=== PATIENT | male | born 1975 | race African-American/Black ===

== ENCOUNTER 2021-04-28 08:00 | Outpatient (CLI) | payer OTHER, MEDICAID ==
[2021-04-28] MEDS ORDERED: LIDOCAINE 1% Multi-Dose 20 ML VIAL. INJ ONE (08:30)
[2021-04-28 09:36] VITALS: BP 118/81
[2021-04-28 09:50] VITALS: BP 111/81
--- NOTE | 2021-04-28 10:01 | RAD ---
PROCEDURE: FLUOROSCOPICALLY GUIDED DIAGNOSTIC LUMBAR PUNCTURE CLINICAL HISTORY: The patient is a 45 years old Male who presented with syphilis. CONSENT: The risks, benefits, treatment options, potential complications and personnel to be involved were discussed (including the risks of radiation exposure, instruments to be used, contrast and anes thesia administration) with the patient. All questions were answered and consent was obtained. The pa tient indicated willingness to proceed. GENERAL: - Medication Reconciliation: The patient's medications and allergies were reviewed and reconciled to the proposed procedure/treatment. - Pre-procedure Sign-in: Safety Checklist Performed Yes - Positioning: The patient was placed Prone on the fluoroscopy table. - The lower back was then sterilely prepped and draped. - Time Out: A time out was performed immediately prior to procedure start with the nursing, anesthesi a and interventional team, correctly identifying the patient name, date of , procedure, anatomy (including marking of site and side), patient position, procedure consent form, relevant diagnostic a nd radiology test results, antibiotic administration, safety precautions, and procedure-specific equi pment needs. - Procedure Start Time / Timeout Time: 08:45 - Anesthesia Type: Local anesthesia: 1 mL 1% Lidocaine PROCEDURE: - Access Site: 22 gauge spinal needle from a right paramedian approach at the level of L3-L4. - Procedure Details: -- Diagnostic LP: Under fluoroscopic guidance, the needle was advanced into the lumbar subarachnoid s pace with location confirmed by CSF return. 14 mL of CSF was withdrawn in sterile fashion from the cobb barachnoid space and sent for laboratory analysis. No contrast was administered. -- CSF Color: Clear - Estimated Blood Loss: 0 mL - Fluoroscopic Radiation Summary: -- Fluoroscopy Time: 0.4 minutes -- Number of Images: 0 POST-PROCEDURE: - Hemostasis: Hemostasis was achieved using light manual compression. - Sign-out: Communication Performed Yes - Procedure End Time: 09:20 - Conclusion: The patient was transferred to the Radiology Recovery Room in stable condition and obse rved for approximately 60 minutes. Immediate Complications: None IMPRESSION: Successful fluoroscopically guided diagnostic lumbar puncture. Electronically signed by: Grupo Solorzano DO (04/28/2021 9:59 AM) [id number]
[2021-04-28 10:05] VITALS: BP 108/72
[2021-04-28 10:20] VITALS: BP 110/69
--- NOTE | 2021-04-28 10:32 | NUR ---
Patient given LP discharge instruction sheet and directed to outpatient exit in order to meet his ride. No questions asked and patient understood all instructions.
[2021-04-28 10:47] LABS: CSF PROTEIN 74.2 mg/dL (15.0-45.0)
[2021-04-28 13:03] LABS: CSF CLARITY CLEAR; CSF COLOR COLORLESS; CSF MON % 100 %; CSF PMN % 0 %; CSF RBC COUNT 27 /cmm (Not Established); CSF WBC COUNT 11 /cmm (Not Established)
== END 2021-04-28 10:30 | disposition home or self-care (01) ==
LOC: RAD 08:00
PROVIDERS: ATTEND Internal Medicine Infectious Disease
DX: A53.9 Syphilis, unspecified (principal)
CPT/HCPCS: 36415; 62328; 82945; 84157; 86592; 89051; J3490; 62270